=== PATIENT | male | born 1945 | race Caucasian/White ===

== ENCOUNTER 2017-09-18 19:31 | Emergency (ER) | payer MEDICARE, OTHER ==
--- NOTE | 2017-09-18 20:16 | EDM.PDOC ---
ED HPI GENERAL MEDICAL PROBLEM - General Chief Complaint: Abdominal Pain Stated Complaint: LOWER ABDOMINAL PAIN RIGHT SIDE Time Seen by Provider: 09/18/17 19:54 Source of Information: Reports: Patient - History of Present Illness INITIAL COMMENTS - FREE TEXT/NARRATIVE: Patient is here for evaluation of right lower back pain radiating around his flank to his right groin. He states that this started yesterday. Also feels that he's had difficulty initiating urination as well as some dysuria. Denies hematuria or abnormal color or smell. History of prostate cancer, did have radiation for this. Now is on oral medication. History of gout, on allopurinol. Has had no recent uric Acid levels drawn. Patient reports being diabetic, states this is under very good control. Last A1c was 6.2%. Denies fever/chills. Denies chest pain or dyspnea. No loss of appetite, no N/V/ D. Treatments CUE SELECTOR: Reports: NSAIDS Right Flank Pain Score (Numeric/FACES): 8 - Related Data Allergies Allergy/AdvReac Type Severity Reaction Status Date / Time No Known Allergies Allergy Verified 08/06/14 08:13 Home Meds: Home Meds Abiraterone Acetate [Zytiga] 1,000 mg PO DAILY 09/18/17 [History] Allopurinol [Zyloprim] 50 mg PO DAILY 09/18/17 [History] Aspirin 81 mg PO DAILY 09/18/17 [History] B2/Vit A,C & E/Lut/Zeaxanth/Mn [Icaps] 1 each PO BID 09/18/17 [History] Cholecalciferol (Vitamin D3) [Vitamin D] 2,000 unit PO DAILY 09/18/17 [History] Colesevelam [Welchol] 625 mg PO BID 09/18/17 [History] Dulaglutide [Trulicity] 1.5 mg SQ WEEKLY 09/18/17 [History] Fish Oil/DHA/EPA [Fish Oil 1,200 MG] 1,200 mg PO BID 09/18/17 [History] Insulin Aspart [NovoLOG] 22 units SUBCUT DAILY 09/18/17 [History] Insulin Glarg,Human.Rec.Analog [Lantus] 45 unit SQ BEDTIME 09/18/17 [History] Lisinopril 5 mg PO DAILY 09/18/17 [History] Multivitamin [Multi-Vitamin Daily] 0.5 tab PO BID 09/18/17 [History] atorvaSTATin [Lipitor] 40 mg PO DAILY 09/18/17 [History] metFORMIN HCl [Metformin HCl ER] 500 mg PO DAILY 09/18/17 [History] predniSONE [Prednisone] 5 mg PO BID 09/18/17 [History] traMADol [Ultram] 50 mg PO Q6H PRN #10 tab 09/18/17 [Rx] Past Medical History HEENT History: Reports: Impaired Vision Cardiovascular History: Reports: High Cholesterol, Hypertension Gastrointestinal History: Reports: Cholelithiasis Endocrine/Metabolic History: Reports: Diabetes, Type II Oncologic (Cancer) History: Reports: Prostate - Past Surgical History Musculoskeletal Surgical History: Reports: Other (See Below) Other Musculoskeletal Surgeries/Procedures:: right foot surgery Social & Family History - Tobacco Use Smoking Status *Q: Former Smoker Used Tobacco, but Quit: Yes Month/Year Tobacco Last Used: 7 years Second Hand Smoke Exposure: No - Caffeine Use Caffeine Use: Reports: Coffee - Recreational Drug Use Recreational Drug Use: No ED ROS GENERAL - Review of Systems Review Of Systems: See Below Constitutional: Reports: No Symptoms Respiratory: Reports: No Symptoms Cardiovascular: Reports: No Symptoms GI/Abdominal: Reports: Abdominal Pain. Denies: Anorexia, Diarrhea, Decreased Appetite, Nausea, Vomiting : Reports: Dysuria, Flank Pain, Frequency, Urgency, Other (Difficulty initiating urination, feeling of incomplete emptying.). Denies: Incontinence Skin: Reports: No Symptoms ED EXAM, GI/ABD - Physical Exam Exam: See Below Exam Limited By: No Limitations General Appearance: Alert, WD/WN, No Apparent Distress Respiratory/Chest: No Respiratory Distress, Lungs Clear, Normal Breath Sounds, No Accessory Muscle Use Cardiovascular: Regular Rate, Rhythm, No Murmur GI/Abdominal Exam: Normal Bowel Sounds, Soft, Tender (Mild RLQ tenderness, pt reports pain to be "deeper" than area palpated.), Other Neurological: Alert, Oriented Psychiatric: Normal Affect, Normal Mood Course - Vital Signs Last Recorded V/S: Last Vital Signs Temp 97.8 F 09/18/17 19:39 Pulse 82 09/18/17 19:39 Resp 19 09/18/17 19:39 BP Pulse Ox 95 09/18/17 19:39 - Orders/Labs/Meds Orders: Active Orders 24 hr Category Date Time Status Abdomen 1V Flat [CR] Stat Exams 09/18/17 19:55 Taken UA W/MICROSCOPIC [URIN] Stat Lab 09/18/17 19:50 Ordered Labs: Laboratory Tests 09/18/17 09/18/17 09/18/17 Range/Units 19:50 20:40 20:40 WBC 7.94 (4.23-9.07) K/mm3 RBC 4.24 L (4.63-6.08) M/mm3 Hgb 13.5 L (13.7-17.5) gm/L Hct 40.0 L (40.1-51.0) % MCV 94.3 H (79.0-92.2) fl MCH 31.8 (25.7-32.2) pg MCHC 33.8 (32.2-35.5) g/dl RDW Std Deviation 45.2 H (35.1-43.9) fL Plt Count 196 (163-337) K/mm3 MPV 8.7 L (9.4-12.3) fl Neutrophils % (Manual) 70 H (40-60) % Band Neutrophils % 0 (0-10) % Lymphocytes % (Manual) 19 L (20-40) % Atypical Lymphs % 2 % Monocytes % (Manual) 9 (2-10) % Eosinophils % (Manual) 0 L (0.8-7.0) % Basophils % (Manual) 0 L (0.2-1.2) Platelet Estimate Adequate Plt Morphology Comment Normal RBC Morph Comment Normal Sodium 144 (136-145) mEq/L Potassium 4.7 (3.5-5.1) mEq/L Chloride 110 H (98-107) mEq/L Carbon Dioxide 22 (21-32) mEq/L Anion Gap 16.7 H (5-15) BUN 31 H (7-18) mg/dL Creatinine 2.1 H (0.7-1.3) mg/dL Est Cr Clr Drug Dosing 34.90 mL/min Estimated GFR (MDRD) 31 (>60) mL/min BUN/Creatinine Ratio 14.8 (14-18) Glucose 197 H (83-115) mg/dL Calcium 9.6 (8.5-10.1) mg/dL Total Bilirubin 0.7 (0.2-1.0) mg/dL AST 30 (15-37) U/L ALT 50 (16-63) U/L Alkaline Phosphatase 48 (46-116) U/L C-Reactive Protein < 0.2 (<1.0) mg/dL Total Protein 7.0 (6.4-8.2) g/dl Albumin 3.5 (3.4-5.0) g/dl Globulin 3.5 gm/dL Albumin/Globulin Ratio 1.0 (1-2) Urine Color Yellow (Yellow) Urine Appearance Slt cloudy H (Clear) Urine pH 5.5 (5.0-8.0) Ur Specific Slater > or = 1.030 (1.005-1.030) Urine Protein 2+ H (Negative) Urine Glucose (UA) Negative (Negative) Urine Ketones Trace H (Negative) Urine Occult Blood Negative (Negative) Urine Nitrite Negative (Negative) Urine Bilirubin Negative (Negative) Urine Urobilinogen 0.2 (0.2-1.0) Ur Leukocyte Esterase Negative (Negative) Urine RBC Not seen (0-5) /hpf Urine WBC 0-5 (0-5) /hpf Ur Epithelial Cells 0-5 (0-5) /hpf Urine Bacteria Not seen (FEW) /hpf Hyaline Casts 0-5 (0-5) /lpf Urine Mucus Few (FEW) /hpf Meds: Medications Discontinued Medications Generic Name Dose Route Start Last Admin Trade Name Sue PRN Reason Stop Dose Admin Sodium Chloride 1,000 mls @ 999 mls/hr 09/18/17 20:31 09/18/17 20:45 Normal Saline IV 09/18/17 21:31 999 mls/hr ONETIME ONE Administration Ketorolac Tromethamine 30 mg 09/18/17 20:31 09/18/17 20:45 Toradol IVPUSH 09/18/17 20:32 30 mg ONETIME ONE Administration - Re-Assessments/Exams Free Text/Narrative Re-Assessment/Exam: Urinalysis does not demonstrate hematuria, no stone visualized on x-ray. Patient no longer tender to palpation. Question if his pain is more related to muscle strain. Patient should not take NSAIDs, will give small quantity of tramadol. WBC 7940. CRP <0.2. Hgb mildly decreased at 13.5. Patient's creatinine is elevated at 2.1, GFR is 31. BUN 31. Anion gap is 16.7. Advised avoiding NSAIDs, Tylenol as needed for pain and tramadol through breakthrough pain. Patient will follow up with his PCP if not resolved in the next 48 hours or sooner if any worsening. Return to emergency room if needed. 09/18/17 21:13 09/18/17 22:10 Departure - Departure Time of Disposition: 21:59 Disposition: Home, Self-Care 01 Condition: Good Clinical Impression: Abdominal pain Qualifiers: Abdominal location: right lower quadrant Qualified Code(s): R10.31 - Right lower quadrant pain - Discharge Information Prescriptions: traMADol [Ultram] 50 mg PO Q6H PRN #10 tab PRN Reason: Pain Referrals: Jose Maria Rodriguez MD [Ordering Only Provider] - Forms: ED Department Discharge Additional Instructions: You were evaluated in the emergency room tonight for abdominal pain. Evaluation was normal. There is no sign of infection. CT scan demonstrated no abnormality to be causing this. Your kidney function was increased, I recommend that you increase your water intake. You are to follow-up with your primary provider to have this closely monitored. You need to avoid NSAIDs, which are Aleve or ibuprofen. Tylenol as needed for pain, tramadol as needed for breakthrough pain. Follow-up with your primary provider if pain persists past 48 hours or if there is any worsening. Certainly return to ER if needed. - My Orders Last 24 Hours: My Active Orders 09/18/17 19:50 UA W/MICROSCOPIC [URIN] Stat 09/18/17 19:55 Abdomen 1V Flat [CR] Stat - Assessment/Plan Last 24 Hours: My Active Orders 09/18/17 19:50 UA W/MICROSCOPIC [URIN] Stat 09/18/17 19:55 Abdomen 1V Flat [CR] Stat
[2017-09-18] MEDS ORDERED: Sodium Chloride 0.9% 1,000 ML IV ONE (20:31)
[2017-09-18] MEDS ORDERED: Ketorolac 30 MG/ML SDV IVPUSH ONE (20:31)
--- NOTE | 2017-09-18 21:21 | CT ---
Abdomen and pelvis Technique: Multiple axial sections were obtained from above the kidneys inferiorly through the pubic symphysis. Intravenous and oral contrast not utilized. Study was performed as a ureteral stone protocol. Findings: Ureters show no dilatation. No ureteral calcifications are seen. No bladder calculi are identified. Visualized portions of the lower liver and spleen appear within normal limits. Large calcified gallstone is partially visualized within the gallbladder measuring approximately 2.1 cm. Pancreas appears normal. Aorta shows atherosclerotic change without aneurysmal dilatation. Diverticuli are seen within the sigmoid colon without evidence of diverticulitis. No free fluid or inflammatory change is seen. Bone window settings were reviewed which shows spondylolisthesis at L5-S1 due to bilateral spondylolytic defects. Spondylolisthesis measures 1.2 cm. Severe disc space narrowing is noted at L5-S1. Impression: 1. Incidental findings as noted above. Nothing acute is appreciated on noncontrast CT study of the abdomen and pelvis performed as a ureteral stone protocol. Diagnostic code #2
[2017-09-18] MEDS ORDERED: Acetaminophen/HYDROcodone 325-5 MG Tab PO ONE (22:19)
--- NOTE | 2017-09-19 06:51 | CR ---
Abdomen: Supine view of the abdomen was obtained. Comparison: No prior abdominal x-ray. Calcification is noted within the upper right abdomen compatible with a large calcified gallstone. Bowel gas pattern appears normal. No soft tissue abnormality is seen. Joint space narrowing is noted within both hips. Impression: 1. Calcified gallstone within the upper right abdomen. 2. Other incidental findings as noted above. Diagnostic code #2
== END 2017-09-18 22:30 | disposition home or self-care (01) ==
LOC: JD.ED 19:31
DX: R10.31 Right lower quadrant pain (principal); E11.9 Type 2 diabetes mellitus without complications; Z79.84 Long term (current) use of oral hypoglycemic drugs; Z79.899 Other long term (current) drug therapy; Z87.891 Personal history of nicotine dependence
CPT/HCPCS: 36415; 74018; 74176; 80053; 81001; 85007; 85027; 86140; 96361; 96374; 99284; A9270; J1885; J7040

== ENCOUNTER 2019-10-28 16:03 | Emergency (ER) | payer MEDICARE, OTHER ==
--- NOTE | 2019-10-28 16:43 | EDM.PDOC ---
ED HPI GENERAL MEDICAL PROBLEM - General Chief Complaint: Respiratory Problem Stated Complaint: OXYGEN LEVELS LOW Time Seen by Provider: 10/28/19 16:18 Source of Information: Reports: Patient, RN Notes Reviewed History Limitations: Reports: No Limitations - History of Present Illness INITIAL COMMENTS - FREE TEXT/NARRATIVE: Patient is a 74-year-old male who presents to the ED for the evaluation of his low oxygen levels and ongoing shortness of breath. Patient was COVID positive roughly 1 month ago, he states however since then he has been having increased shortness of breath, and complains of a runny nose. He has a history of prostate cancer, and he states he just did finish last at the end of August. His PET scan showed no sign of bony metastases. But he does have a few lymph nodes involved in the chest abdomen and pelvis. He notes that today his oxygen level at home has been about 88% while moving around, and in the low to mid 90s when he is at rest. His O2 sats when he ambulated to the mailbox was 88% on room air. The patient is not complaining of any chest pain, lightheadedness, dizziness, fever/chills, cough/nausea or vomiting. He does note that his son was also COVID positive, and diagnosed with bilateral pulmonary embolus yesterday, and he notes that his made him come in to be evaluated due to a shortness of breath and low oxygen levels. - Related Data Allergies Allergy/AdvReac Type Severity Reaction Status Date / Time No Known Allergies Allergy Verified 10/28/19 16:17 Home Meds: Home Meds Aspirin 81 mg PO DAILY 09/18/17 [History] B2/Vits A,C,E/Lut/Zeaxanth/Min [Icaps] 1 each PO BID 09/18/17 [History] Cholecalciferol (Vitamin D3) [Vitamin D] 2,000 unit PO DAILY 09/18/17 [History] Colesevelam [Welchol] 625 mg PO BID 09/18/17 [History] Fish Oil/DHA/EPA [Fish Oil 1,200 MG] 1,200 mg PO BID 09/18/17 [History] Insulin Glarg,Human.Rec.Analog [Lantus] 45 unit SQ BEDTIME 09/18/17 [History] Lisinopril 5 mg PO DAILY 09/18/17 [History] metFORMIN HCl [Metformin HCl ER] 500 mg PO DAILY 09/18/17 [History] Colesevelam HCl [Welchol] 625 mg PO BIDMEALS 10/28/19 [History] Empagliflozin [Jardiance] 10 mg PO DAILY 10/28/19 [History] Leuprolide [Lupron] 0 mg SQ ASDIRECTED 10/28/19 [History] Past Medical History HEENT History: Reports: Impaired Vision Cardiovascular History: Reports: High Cholesterol, Hypertension Gastrointestinal History: Reports: Cholelithiasis Endocrine/Metabolic History: Reports: Diabetes, Type II Oncologic (Cancer) History: Reports: Prostate, Other (See Below) Other Oncologic History: Prostate CA that spread to lymph nodes. - Infectious Disease History Infectious Disease History: Reports: Novel Coronavirus (September 2019) - Past Surgical History Musculoskeletal Surgical History: Reports: Other (See Below) Other Musculoskeletal Surgeries/Procedures:: right foot surgery Social & Family History - Tobacco Use Smoking Status *Q: Former Smoker Used Tobacco, but Quit: Yes Month/Year Tobacco Last Used: 2009 - Caffeine Use Caffeine Use: Reports: Coffee, Soda - Recreational Drug Use Recreational Drug Use: No ED ROS GENERAL - Review of Systems Review Of Systems: Comprehensive ROS is negative, except as noted in HPI. ED EXAM, GENERAL - Physical Exam Exam: See Below Exam Limited By: No Limitations General Appearance: Alert, WD/WN, No Apparent Distress Respiratory/Chest: No Respiratory Distress, Lungs Clear, Normal Breath Sounds, No Accessory Muscle Use, Chest Non-Tender Cardiovascular: Normal Peripheral Pulses, Regular Rate, Rhythm, No Murmur Extremities: Normal Inspection, Normal Capillary Refill Neurological: Alert, Oriented, Normal Cognition, No Motor/Sensory Deficits Psychiatric: Normal Affect, Normal Mood Skin Exam: Warm, Dry, Intact, Normal Color, No Rash EKG INTERPRETATION EKG Date: 10/28/19 Time: 16:26 Rhythm: NSR Rate (Beats/Min): 97 [place]aris: Normal P-Wave: Present QRS: Normal ST-T: Normal QT: Normal EKG Interpretation Comments: No obvious ischemia or acute ST changes noted, reviewed by myself and Dr. Huang. Course - Vital Signs Last Recorded V/S: Last Vital Signs Temp 97.4 F 10/28/19 16:13 Pulse 100 10/28/19 16:13 Resp 24 H 10/28/19 16:13 BP 187/67 H 10/28/19 16:13 Pulse Ox 95 10/28/19 16:13 - Orders/Labs/Meds Orders: Active Orders 24 hr Category Date Time Status EKG Documentation Completion [RC] STAT Care 10/28/19 16:21 Active Oxygen Therapy, ED [RC] ASDIRECTED Care 10/28/19 17:03 Active Peripheral IV Care [RC] . DIRECTED Care 10/28/19 17:03 Active Sodium Chloride 0.9% [Normal Saline] 1,000 ml Med 10/28/19 17:02 Active IV ONETIME Sodium Chloride 0.9% [Saline Flush] Med 10/28/19 17:03 Active 10 ml FLUSH ASDIRECTED PRN Peripheral IV Insertion Adult [OM.PC] Routine Oth 10/28/19 17:03 Ordered Medication Orders Sodium Chloride (Normal Saline) 1,000 mls @ 200 mls/hr IV ONETIME ONE Stop: 10/28/19 22:01 Last Admin: 10/28/19 17:14 Dose: 200 mls/hr Documented by: JUAN PABLO Sodium Chloride (Saline Flush) 10 ml FLUSH ASDIRECTED PRN PRN Reason: Keep Vein Open Last Admin: 10/28/19 17:14 Dose: 10 ml Documented by: JUAN PABLO Labs: Laboratory Tests 10/28/19 10/28/19 10/28/19 Range/Units 16:20 16:20 16:20 WBC 7.73 (4.23-9.07) K/mm3 RBC 4.28 L (4.63-6.08) M/mm3 Hgb 11.9 L D (13.7-17.5) gm/dl Hct 39.1 L (40.1-51.0) % MCV 91.4 (79.0-92.2) fl MCH 27.8 (25.7-32.2) pg MCHC 30.4 L (32.2-35.5) g/dl RDW Std Deviation 57.9 H (35.1-43.9) fL Plt Count 274 D (163-337) K/mm3 MPV 9.0 L (9.4-12.3) fl Neut % (Auto) 59.3 (34.0-67.9) % Lymph % (Auto) 28.8 (21.8-53.1) % [place] % (Auto) 9.3 (5.3-12.2) % Eos % (Auto) 1.9 (0.8-7.0) Baso % (Auto) 0.3 (0.1-1.2) % Neut # (Auto) 4.58 (1.78-5.38) K/mm3 Lymph # (Auto) 2.23 (1.32-3.57) K/mm3 [place] # (Auto) 0.72 (0.30-0.82) K/mm3 Eos # (Auto) 0.15 (0.04-0.54) K/mm3 Baso # (Auto) 0.02 (0.01-0.08) K/mm3 Manual Slide Review Abnormal smear D-Dimer, Quantitative 5.38 H (0.19-0.50) mg/L Sodium 141 (136-145) mEq/L Potassium 4.7 (3.5-5.1) mEq/L Chloride 106 (98-107) mEq/L Carbon Dioxide 24 (21-32) mEq/L Anion Gap 15.7 H (5-15) BUN 30 H (7-18) mg/dL Creatinine 2.5 H (0.7-1.3) mg/dL Est Cr Clr Drug Dosing 28.45 mL/min Estimated GFR (MDRD) 25 (>60) mL/min BUN/Creatinine Ratio 12.0 L (14-18) Glucose 161 H (83-115) mg/dL Calcium 8.9 (8.5-10.1) mg/dL Total Bilirubin 0.3 (0.2-1.0) mg/dL AST 69 H (15-37) U/L ALT 43 (16-63) U/L Alkaline Phosphatase 75 (46-116) U/L Troponin I < 0.017 (0.00-0.056) ng/mL NT-Pro-B Natriuret Pep (0-125) pg/mL Total Protein 6.9 (6.4-8.2) g/dl Albumin 2.8 L (3.4-5.0) g/dl Globulin 4.1 gm/dL Albumin/Globulin Ratio 0.7 L (1-2) /16/20 Range/Units 16:20 WBC (4.23-9.07) K/mm3 RBC (4.63-6.08) M/mm3 Hgb (13.7-17.5) gm/dl Hct (40.1-51.0) % MCV (79.0-92.2) fl MCH (25.7-32.2) pg MCHC (32.2-35.5) g/dl RDW Std Deviation (35.1-43.9) fL Plt Count (163-337) K/mm3 MPV (9.4-12.3) fl Neut % (Auto) (34.0-67.9) % Lymph % (Auto) (21.8-53.1) % [place] % (Auto) (5.3-12.2) % Eos % (Auto) (0.8-7.0) Baso % (Auto) (0.1-1.2) % Neut # (Auto) (1.78-5.38) K/mm3 Lymph # (Auto) (1.32-3.57) K/mm3 [place] # (Auto) (0.30-0.82) K/mm3 Eos # (Auto) (0.04-0.54) K/mm3 Baso # (Auto) (0.01-0.08) K/mm3 Manual Slide Review D-Dimer, Quantitative (0.19-0.50) mg/L Sodium (136-145) mEq/L Potassium (3.5-5.1) mEq/L Chloride (98-107) mEq/L Carbon Dioxide (21-32) mEq/L Anion Gap (5-15) BUN (7-18) mg/dL Creatinine (0.7-1.3) mg/dL Est Cr Clr Drug Dosing mL/min Estimated GFR (MDRD) (>60) mL/min BUN/Creatinine Ratio (14-18) Glucose (83-115) mg/dL Calcium (8.5-10.1) mg/dL Total Bilirubin (0.2-1.0) mg/dL AST (15-37) U/L ALT (16-63) U/L Alkaline Phosphatase (46-116) U/L Troponin I (0.00-0.056) ng/mL NT-Pro-B Natriuret Pep 893 H (0-125) pg/mL Total Protein (6.4-8.2) g/dl Albumin (3.4-5.0) g/dl Globulin gm/dL Albumin/Globulin Ratio (1-2) Meds: Medications Generic Name Dose Route Start Last Admin Trade Name Sue PRN Reason Stop Dose Admin Sodium Chloride 1,000 mls @ 200 mls/hr 10/28/19 17:02 10/28/19 17:14 Normal Saline IV 10/28/19 22:01 200 mls/hr ONETIME ONE Administration Sodium Chloride 10 ml 10/28/19 17:03 10/28/19 17:14 Saline Flush FLUSH 10 ml ASDIRECTED PRN Administration Keep Vein Open - Re-Assessments/Exams Free Text/Narrative Re-Assessment/Exam: 10/28/19 16:46 Patient presents to the ED for evaluation of his ongoing shortness of breath. Labs to be evaluated to include CBC, CMP, d-dimer, troponin, EKG appears to have no acute ST change or ischemic changes noted. He will also receive a chest x- ray, with the possibility of chest CT if d-dimer illustrates the need as such. 10/28/19 17:10 Patient's d-dimer is elevated at 5.38. We will get him started on some light IV fluids, as he is a diabetic, and we will get a CTA of his chest to evaluate the possibility of pulmonary embolus. Patient's creatinine is elevated at 2.5, GFR is low at 25. Patient's BNP is elevated at 893, and his troponin is undetectably low at this time. I did go over these results with Dr. Huang, and he does think that doing the CTA is most appropriate course at this time, he states that we can give fluids to try to counteract the IV contrast needed for the CTA. 10/28/19 19:18 Chest x-ray shows mild right basilar atelectasis, but no other acute findings are appreciated. 10/28/19 19:[address] Angio shows no finding of a pulmonary embolus.. There are findings of increased retroperitoneal adenopathy, but he does have this established on his last chest CT done via [facility], that is been followed by his oncologist. Mild bibasilar interstitial fibrosis and atelectasis are both found on the CT angio as well. We will try to get him home with incentive spirometry, and have him follow-up in the clinic for worsening symptoms. Departure - Departure Time of Disposition: 19:29 Disposition: Home, Self-Care 01 Condition: Good Clinical Impression: Elevated d-dimer, Atelectasis of right lung Dyspnea Qualifiers: Dyspnea type: dyspnea on exertion Qualified Code(s): R06.00 - Dyspnea, unspecified - Discharge Information *PRESCRIPTION DRUG MONITORING PROGRAM REVIEWED*: No *COPY OF PRESCRIPTION DRUG MONITORING REPORT IN PATIENT THOMPSON: No Instructions: Atelectasis, Adult Referrals: Hillary Das PA-C [Primary Care Provider] - Forms: ED Department Discharge Additional Instructions: You were evaluated in the ER today for your ongoing shortness of breath with a recent diagnosis of COVID-19. Your laboratory evaluation demonstrated no focal bacterial infection. However your d-dimer was elevated, this is a marker for blood clots, and can be raised and a lot of different diseases. For instance it can be elevated in patients with cancer, and kidney issues, both of which you have. Your CT of your chest demonstrated no pulmonary embolism. You were given some IV fluids and management of the chest CT that had to be done at today's visit. Please continue to increase your oral fluid hydration at home, to help flush the contrast from your system. Your chest x-ray and CT also demonstrated mild atelectasis, this is a collapse of some of the air sacs in your lungs that can happen when you do not take deep enough breaths; this may also account for the mild hypoxia and shortness of breath you are having. To remedy this, you were given an incentive spirometer, please use 10 deep inhalations every hour while awake for the next few days to help improve the symptoms. Recommend you follow-up with your primary care provider, sometime by the end of this week or next week if your low oxygen levels are continuing to persist, as you might need a short course of home oxygen therapy as needed. Please return to the ER at any time however if your symptoms change or worsen. Sepsis Event Note (ED) - Evaluation Sepsis Screening Result: No Definite Risk - Focused Exam Vital Signs: Vital Signs Temp Pulse Resp BP Pulse Ox 10/28/19 16:13 97.4 F 100 24 H 187/67 H 95 - My Orders Last 24 Hours: My Active Orders 10/28/19 16:21 EKG Documentation Completion [RC] STAT 10/28/19 17:02 Sodium Chloride 0.9% [Normal Saline] 1,000 ml IV ONETIME 10/28/19 17:03 Oxygen Therapy, ED [RC] ASDIRECTED Peripheral IV Care [RC] . DIRECTED Sodium Chloride 0.9% [Saline Flush] 10 ml FLUSH ASDIRECTED PRN Peripheral IV Insertion Adult [OM.PC] Routine - Assessment/Plan Last 24 Hours: My Active Orders 10/28/19 16:21 EKG Documentation Completion [RC] STAT 10/28/19 17:02 Sodium Chloride 0.9% [Normal Saline] 1,000 ml IV ONETIME 10/28/19 17:03 Oxygen Therapy, ED [RC] ASDIRECTED Peripheral IV Care [RC] . DIRECTED Sodium Chloride 0.9% [Saline Flush] 10 ml FLUSH ASDIRECTED PRN Peripheral IV Insertion Adult [OM.PC] Routine
[2019-10-28 16:46] VITALS: BP 187/67; PULSE 100
--- NOTE | 2019-10-28 16:57 | CR ---
Chest: Portable view of the chest was obtained. Comparison: Prior chest x-ray of 01/05/10. Mild right basilar atelectasis is seen. Lungs otherwise are clear. Heart size and mediastinum are within normal limits for portable technique. Bony structures are grossly intact. Impression: 1. Mild right basilar atelectasis. 2. Nothing acute is otherwise seen on portable chest x-ray Diagnostic code #3 This report was dictated in MDT
[2019-10-28] MEDS ORDERED: Sodium Chloride 0.9% 1,000 ML IV ONE (17:02)
[2019-10-28] MEDS ORDERED: Sodium Chloride 0.9% 10 ML Syringe FLUSH PRN (17:03)
--- NOTE | 2019-10-28 19:17 | CT ---
CT chest Technique: Multiple axial sections through the chest were obtained. Intravenous contrast was utilized. Comparison: Prior chest CT study of 08/05/09. Findings: Large lymph node is seen with left-sided mediastinum. This is noted on prior study from 2009. This may be slightly increased in size of questionable significance. No additional lymph nodes are seen within the mediastinum. Aorta shows no aneurysm or dissection. Pulmonary arteries are well-opacified with no filling defects or pulmonary embolism. Atherosclerotic irregularity is seen within the coronary arteries. Visualized upper abdominal structures shows adenopathy within the upper retroperitoneum. Adenopathy is more prominent than on prior CT abdomen and pelvis study of 09/18/17. Large calcified gallstone is seen within the gallbladder. Lung window settings shows no definite acute parenchymal change. Slight atelectasis and probable scarring seen within the right and left lung bases. Impression: 1. No findings of pulmonary embolism. 2. Increasing retroperitoneal adenopathy within the upper retroperitoneum from prior study from 2018. Difficult to exclude lymphoproliferative disease if patient has no known primary carcinoma. 3. Slightly increased lymph node within the mediastinum of questionable significance since this is seen on prior study from 2009. 4. Mild bibasilar interstitial fibrosis and atelectasis. No acute parenchymal change is suspected. 5. Other findings as noted above. Diagnostic code #9 This report was dictated in MDT
== END 2019-10-28 20:05 | disposition home or self-care (01) ==
LOC: JD.ED 16:03
DX: J98.11 Atelectasis (principal); R79.1 Abnormal coagulation profile; I10 Essential (primary) hypertension; E11.9 Type 2 diabetes mellitus without complications; Z79.82 Long term (current) use of aspirin; Z79.899 Other long term (current) drug therapy; Z79.4 Long term (current) use of insulin; Z87.891 Personal history of nicotine dependence
CPT/HCPCS: 36415; 71045; 71275; 80053; 83880; 84484; 85025; 85379; 93005; 96360; 96361; 99285; J7030; 93010; 99283